=== PATIENT | male | born 2000 | race Caucasian/White ===

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

== ENCOUNTER 2019-04-04 12:29 | Emergency (ER) | payer BC, OTHER ==
--- NOTE | 2019-04-04 13:14 | ED ---
Lower Extremity - HPI Summary HPI Summary: Patient is a 18-year-old male who presents emergency department for evaluation of left knee injury that occurred yesterday. Patient states he slipped on water yesterday and hyperextended left knee. Patient states he believes his patella dislocated laterally. Patient has a friend who is an EMT who was able to extend leg and reduced patella. Patient notes pain and swelling persists today and presents for evaluation. Denies numbness, tingling or weakness to extremity. Symptoms are mild in severity. Walking makes symptoms worse. Rest makes symptoms better. - History of Current Complaint Chief Complaint: EDExtremityLower Stated Complaint: LEFT KNEE PAIN Time Seen by Provider: 04/04/19 13:13 Hx Obtained From: Patient Pain Intensity: 5 - Allergies/Home Medications Allergies/Adverse Reactions: Allergies Allergy/AdvReac Type Severity Reaction Status Date / Time No Known Allergies Allergy Verified 04/04/19 12:35 PMH/Surg Hx/FS Hx/Imm Hx Previously Healthy: Yes Endocrine/Hematology History: Denies: Hx Anticoagulant Therapy, Hx Diabetes Cardiovascular History: Denies: Hx Cardiac Arrest, Hx Hypertension, Hx Pacemaker/ICD History: Denies: Hx Dialysis, Hx Renal Disease Sensory History: Denies: Hx Hearing Aid Neurological History: Denies: Hx CVA Psychiatric History: Denies: Hx Panic Disorder - Surgical History Surgery Procedure, Year, and Place: WISDOM TEETH. STAFF INFECTION RIGHT CALF- I &D Infectious Disease History: No Infectious Disease History: Denies: Traveled Outside the [place] in Last 30 Days - Family History Known Family History: Positive: None, Non-Contributory - Social History Occupation: Student Lives: Dormitory/Roommates Alcohol Use: Rare Substance Use Type: Reports: None Smoking Status (MU): Never Smoked Tobacco Review of Systems Positive: Other - pain and swelling to left knee Skin: Negative Neurological: Negative Negative: Weakness, Paresthesia, Numbness All Other Systems Reviewed And Are Negative: Yes Physical Exam Triage Information Reviewed: Yes Vital Signs On Initial Exam: Initial Vitals Temp Pulse Resp BP Pulse Ox 98.3 F 92 19 117/77 98 04/04/19 12:30 04/04/19 12:30 04/04/19 12:30 04/04/19 12:30 04/04/19 12:30 Vital Signs Reviewed: Yes Appearance: Positive: Well-Appearing - Pt. lying in bed in NAD. Friend present. Skin: Positive: Warm, Dry Head/Face: Positive: Normal Head/Face Inspection Eyes: Positive: Normal, EOMI Neck: Positive: Supple Musculoskeletal: Positive: Other - mild to moderate edema noted to medial aspect of leg knee. Good pedal pulse. Compartments soft. No breaks in the skin. Can extend at knee. Can flex and extend knee with pain. No increased laxity. Neurological: Positive: Normal, CN Intact II-III Psychiatric: Positive: Affect/Mood Appropriate Procedures - Sedation Patient Received Moderate/Deep Sedation with Procedure: No Diagnostics - Vital Signs Vital Signs Temp Pulse Resp BP Pulse Ox 04/04/19 12:30 98.3 F 92 19 117/77 98 - Laboratory Lab Statement: Any lab studies that have been ordered have been reviewed, and results considered in the medical decision making process. Lower Extremity Course/Dx - Course Course Of Treatment: Pt. with hx of possible patella subluxation with reduction. Neurovascularly intact. Xray negative for fx or dislocation per radiology. Knee immobilizer and crutches placed. Will have pt .f.u with ortho for further evaluation of injury. Advised no physical activity until seen by ortho. To ice and elevate. Tylenol or motrin as directed. Pt. understands and agrees with plan. - Diagnoses Differential Diagnosis/HQI/PQRI: Positive: Contusion, Dislocation, Fracture ( Closed), Sprain, Strain Provider Diagnoses: Knee injury Discharge ED - Sign-Out/Discharge Documenting (check all that apply): Patient Departure - Discharge Plan Condition: Good Disposition: HOME Referrals: [facility] [place] [Primary Care Provider] - Sena Harvey MD [Medical Doctor] - Additional Instructions: Call the orthopedic clinic tomorrow to schedule a follow up appointment for further evaluation of knee pain Wear immobilizer and use crutches Would avoid physical activity until seen by orthopedics Ice and elevate Ibuprofen for pain as directed Return to ER if symptoms change or worsen - Billing Disposition and Condition Condition: GOOD Disposition: Home
[2019-04-04 14:55] VITALS: BP 124/69
== END 2019-04-04 14:52 | disposition home or self-care (01) ==
LOC: ED 12:29
DX: S89.92XA Unspecified injury of left lower leg, initial encounter (principal); X50.9XXA Other and unspecified overexertion or strenuous movements or postures, initial encounter; Y92.9 Unspecified place or not applicable
CPT/HCPCS: 99282